=== PATIENT | female | born 1985 | race Hispanic/Latino ===

== ENCOUNTER 2021-06-12 23:04 | Emergency (ER) | payer BC ==
[~2021-06-12] VITALS: Ht 162.6 cm; Wt 92.1 kg
[2021-06-13] MEDS ORDERED: CEFTRIAXONE 1G VIAL IVP ONE
[2021-06-13] MEDS ORDERED: CLINDAMYCIN IVPB 900MG/50ML 50 ML IV ONE
[2021-06-13] MEDS ORDERED: KETOROLAC 30MG VIAL (30MG/ML) IV ONE
[2021-06-13] MEDS ORDERED: 0.9%NACL 1000ML 1,000 ML IV ONE
[2021-06-13 00:11] LABS: BASOPHILS % (AUTO) 1.1 % (0.0-5.0); EOSINOPHILS % (AUTO) 0.8 % (0.0-8.0); HEMATOCRIT 40.1 % (36-48); LYMPHOCYTES % (AUTO) 28.7 % (21.0-51.0); MEAN CORPUSCULAR HGB CONC 33.2 g/dL (32.0-36.0); MEAN CORPUSCULAR VOLUME 84.4 fL (79-99); MONOCYTES % (AUTO) 7.7 % (3.0-13.0); NEUTROPHILS % (AUTO) 61.4 % (40.0-77.0); PLATELET COUNT (AUTO) 360 K/uL (130-400); RED BLOOD CELL COUNT(AUTO) 4.75 MIL/uL (4.00-5.50); RED CELL DISTRIBUTION WIDTH 12.1 % (11.0-15.5); WHITE BLOOD COUNT (AUTO) 7.4 K/uL (4.8-10.8)
[2021-06-13 00:25] LABS: CREATININE 0.6 mg/dL (0.5-1.5); POTASSIUM 3.5 mmol/L (3.5-5.1)
[2021-06-13 00:29] LABS: ALBUMIN 3.7 g/dL (3.5-5.0); BILIRUBIN,TOTAL 0.5 mg/dL (0.2-1.0); TOTAL PROTEIN, SERUM 7.2 g/dL (6.0-8.3)
[2021-06-13 00:50] VITALS: BP 121/63
[2021-06-13 01:13] LABS: ERYTHROCYTE SEDIMENTATION RATE 6 MM/HR (0-20)
[2021-06-13] MEDS ORDERED: CEPH500B PO (02:08)
[2021-06-13] MEDS ORDERED: MELO7.5T12 PO (02:08)
[2021-06-13] MEDS ORDERED: MUPI22O TP (02:09)
[2021-06-13] MEDS ORDERED: ACET-2247 PO (13:53)
== END 2021-06-13 02:17 | disposition home or self-care (01) ==
LOC: EDH 23:04
DX: S80.12XA Contusion of left lower leg, initial encounter (principal); L03.116 Cellulitis of left lower limb; E78.00 Pure hypercholesterolemia, unspecified; F90.9 Attention-deficit hyperactivity disorder, unspecified type; Z79.899 Other long term (current) drug therapy; W20.8XXA Other cause of strike by thrown, projected or falling object, initial encounter; Y93.89 Activity, other specified; Y92.89 Other specified places as the place of occurrence of the external cause; Y99.8 Other external cause status
CPT/HCPCS: 36415; 73700; 80053; 82550; 83605; 84703; 85025; 85651; 86140; 96365; 96375; J0696; J1885; J3490; J7030

== ENCOUNTER 2021-06-13 12:27 | Emergency (ER) | payer BC ==
[~2021-06-13] VITALS: Ht 160 cm; Wt 92.1 kg
[~2021-06-13 12:27] MED LIST: CEPH500B PO; MELO7.5T12 PO; MUPI22O TP
[2021-06-13] MEDS ORDERED: CLINDAMYCIN 150 MG CAP PO ONE (13:00)
[2021-06-13] MEDS ORDERED: ACETAMINOPHEN WITH CODEINE 1 TAB TAB PO ONE (13:00)
[2021-06-13 13:18] LABS: BASOPHILS % (AUTO) 1.1 % (0.0-5.0); EOSINOPHILS % (AUTO) 0.5 % (0.0-8.0); HEMATOCRIT 41.3 % (36-48); MEAN CORPUSCULAR HEMOGLOBIN 27.9 pg (27.0-33.0); MEAN CORPUSCULAR HGB CONC 32.9 g/dL (32.0-36.0); MEAN CORPUSCULAR VOLUME 84.6 fL (79-99); MONOCYTES % (AUTO) 6.6 % (3.0-13.0); NEUTROPHILS % (AUTO) 72.5 % (40.0-77.0); PLATELET COUNT (AUTO) 363 K/uL (130-400); RED BLOOD CELL COUNT(AUTO) 4.88 MIL/uL (4.00-5.50); RED CELL DISTRIBUTION WIDTH 12.1 % (11.0-15.5); WHITE BLOOD COUNT (AUTO) 7.4 K/uL (4.8-10.8)
[2021-06-13 13:32] LABS: CREATININE 0.7 mg/dL (0.5-1.5); POTASSIUM 3.9 mmol/L (3.5-5.1)
[2021-06-13 13:37] LABS: ALBUMIN 3.8 g/dL (3.5-5.0); BILIRUBIN,TOTAL 0.5 mg/dL (0.2-1.0); TOTAL PROTEIN, SERUM 7.6 g/dL (6.0-8.3)
[2021-06-13] MEDS ORDERED: ACET-2247 PO (13:53)
[2021-06-13 13:56] VITALS: BP 128/74
== END 2021-06-13 14:12 | disposition home or self-care (01) ==
LOC: EDH 12:27
DX: S80.812A Abrasion, left lower leg, initial encounter (principal); L03.116 Cellulitis of left lower limb; E78.00 Pure hypercholesterolemia, unspecified; W19.XXXA Unspecified fall, initial encounter; Y93.89 Activity, other specified; Y92.89 Other specified places as the place of occurrence of the external cause; Y99.8 Other external cause status
CPT/HCPCS: 36415; 80053; 83605; 85025

== ENCOUNTER 2021-08-02 02:11 | Emergency (ER) | payer BC, OTHER ==
[~2021-08-02] VITALS: Ht 162.6 cm; Wt 93.9 kg
[~2021-08-02 02:11] MED LIST changes: +ACET-2247 PO
[2021-08-02 02:28] VITALS: BP 128/78
[2021-08-02] MEDS ORDERED: NEOMY SULF/BACITRA/POLYMYXIN B 1 EACH PACKET TP ONE (02:41)
[2021-08-02] MEDS ORDERED: MUPI22O TP (02:47)
[2021-08-02] MEDS ORDERED: DOXY-336 PO (02:47)
== END 2021-08-02 02:59 | disposition home or self-care (01) ==
LOC: EDH 02:11
DX: S81.802A Unspecified open wound, left lower leg, initial encounter (principal); E78.00 Pure hypercholesterolemia, unspecified; Z79.1 Long term (current) use of non-steroidal anti-inflammatories (NSAID); E66.9 Obesity, unspecified; Z68.35 Body mass index [BMI] 35.0-35.9, adult; X58.XXXA Exposure to other specified factors, initial encounter; Y93.89 Activity, other specified; Y92.89 Other specified places as the place of occurrence of the external cause; Y99.8 Other external cause status
CPT/HCPCS: 99282

== ENCOUNTER 2023-01-11 22:39 | Emergency (ER) | payer BC, OTHER ==
[~2023-01-11] VITALS: Ht 162.6 cm; Wt 89.8 kg
[~2023-01-11 22:39] MED LIST changes: +DOXY-469 PO
[2023-01-11 23:28] LABS: APPEARANCE,URINE CLOUDY (CLEAR); BILIRUBIN,URINE NEGATIVE (NEGATIVE); COLOR,URINE YELLOW (YELLOW); GLUCOSE, URINE (UA) NEGATIVE (NEGATIVE); KETONES,URINE NEGATIVE (NEGATIVE); LEUKOCYTE ESTERASE ,URINE 500 Leu/uL (NEGATIVE); NITRATE,URINE NEGATIVE (NEGATIVE); PH,URINE 5.5 (5.0-8.0); PROTEIN,URINE 30 mg/dL (NEGATIVE)
[2023-01-11] MEDS ORDERED: 0.9% NACL 500ML IV.SOLN 500 ML IV ONE (23:30)
[2023-01-11] MEDS ORDERED: PROMETHAZINE HCL 25 MG/ML 1ML AMPULE IM ONE (23:30)
[2023-01-11 23:44] LABS: BASOPHILS % (AUTO) 0.9 % (0.0-5.0); EOSINOPHILS % (AUTO) 0.9 % (0.0-8.0); HEMATOCRIT 42.1 % (36-48); IMMATURE GRANULOCYTE ABSOLUTE 0.02 K/uL (0-1); LYMPHOCYTES # (AUTO) 3.7 K/uL (1.0-4.8); LYMPHOCYTES % (AUTO) 34.2 % (21.0-51.0); MEAN CORPUSCULAR HEMOGLOBIN 29.3 pg (27.0-33.0); MEAN CORPUSCULAR HGB CONC 35.2 g/dL (32.0-36.0); MEAN CORPUSCULAR VOLUME 83.4 fL (79-99); MONOCYTES % (AUTO) 9.1 % (3.0-13.0); NEUTROPHILS # (AUTO) 5.9 K/uL (1.8-7.7); NEUTROPHILS % (AUTO) 54.7 % (40.0-77.0); PLATELET COUNT (AUTO) 395 K/uL (130-400); RED BLOOD CELL COUNT(AUTO) 5.05 MIL/uL (4.00-5.50); WHITE BLOOD COUNT (AUTO) 10.8 K/uL (4.8-10.8)
[2023-01-11 23:45] LABS: ADD UA MICROSCOPIC YES; HCG,QUALITATIVE URINE NEGATIVE (NEGATIVE)
[2023-01-11 23:48] LABS: BACTERIA,URINE MANY /HPF (None Seen); MUCUS,URINE RARE LPF (None Seen); SQUAMOUS EPITHELIAL CELL,UR MOD /HPF (0-2); WBC,URINE 26-50 /HPF (0-1)
[2023-01-11 23:56] LABS: BILIRUBIN,TOTAL 0.8 mg/dL (0.2-1.0); TOTAL PROTEIN, SERUM 7.6 g/dL (6.0-8.3)
[2023-01-11 23:59] LABS: POTASSIUM 2.7 mmol/L (3.5-5.1)
[2023-01-12] MEDS ORDERED: CEFTRIAXONE 1G VIAL IVPB ONE (00:30)
[2023-01-12] MEDS ORDERED: POTASSIUM BICARB/CIT AC 25 MEQ TABLET.EFF PO ONE (00:30)
[2023-01-12 02:02] LABS: APPEARANCE,URINE CLEAR (CLEAR); BILIRUBIN,URINE NEGATIVE (NEGATIVE); COLOR,URINE COLORLESS (YELLOW); GLUCOSE, URINE (UA) NEGATIVE (NEGATIVE); KETONES,URINE NEGATIVE (NEGATIVE); LEUKOCYTE ESTERASE ,URINE NEGATIVE Leu/uL (NEGATIVE); NITRATE,URINE NEGATIVE (NEGATIVE); OCCULT BLOOD,URINE NEGATIVE (NEGATIVE); PH,URINE 6.5 (5.0-8.0); PROTEIN,URINE NEGATIVE (NEGATIVE); UROBILINOGEN,URINE 0.2 mg/dL (0.2-1.0)
[2023-01-12 02:03] LABS: RBC,URINE 0-1 /HPF (0-1); WBC,URINE 0-1 /HPF (0-1)
[2023-01-12] MEDS ORDERED: OMEP40CA21 PO (02:40)
[2023-01-12] MEDS ORDERED: ONDA-104 PO (02:40)
[2023-01-12 02:56] VITALS: BP 142/80; PULSE 78; RESP 16; O2SAT 98
== END 2023-01-12 02:57 | disposition home or self-care (01) ==
LOC: EDH 22:39
DX: K31.84 Gastroparesis (principal); E78.00 Pure hypercholesterolemia, unspecified; K21.9 Gastro-esophageal reflux disease without esophagitis; Z79.899 Other long term (current) drug therapy
CPT/HCPCS: 99284; 74178; 71045; 80053; 83690; 85025; 87088; 81001 ×2; 81025; 36415; 96365; 96366; J7040; J0696

== ENCOUNTER 2024-10-14 03:07 | Emergency (ER) | payer BC, OTHER ==
[~2024-10-14] VITALS: Ht 162.6 cm; Wt 94.8 kg
[~2024-10-14 03:07] MED LIST changes: +DOXY-466 PO; -DOXY-469 PO; +OMEP40CA21 PO; +ONDA-104 PO
--- NOTE | 2024-10-14 03:39 | ERN ---
General Chief Complaint: Animal Bite Stated Complaint: C/O DOG BITE TO RIGHT THUMB Time Seen by MD: 03:11 Source: patient History of Present Illness Initial Comments Healthy 39-year-old female who received very very small dog bite to her distal thumb pad yesterday. The wound bled for a very short time and then has since sealed. She went to an urgent care and received a prescription for antibiotics. She comes here for a rabies shut. She is asymptomatic and the pinprick dog bite has already sealed. Timing/Duration: 24 hours Allergies: Coded Allergies: No Known Allergies (Unverified Allergy, Unknown, 06/12/21) Home Meds Active Scripts Ondansetron HCl (Ondansetron HCl) 4 Mg Tablet, 4 MG PO TIDP PRN for VOMITING, #30 TAB Prov:AFIA LOZANO MD 01/12/23 Omeprazole (Omeprazole) 40 Mg Capsule.dr, 40 MG PO DAILY, #30 CAP Prov:AFIA LOZANO MD 01/12/23 Mupirocin (Bactroban 2% Oint) 1 Appl/Gm Oint, 1 APPL TP BID, #1 TUBE 1 Refill Prov:BRYAN BLACKBURN MD 08/02/21 Doxycycline Monohydrate (Doxycycline Monohydrate) 100 Mg Capsule, 1 CAP PO BID for 10 Days, #20 CAP 0 Refills Prov:BRYAN BLACKBURN MD 08/02/21 Acetaminophen (Tylenol) 325 Mg Tablet, 650 MG PO Q4HPRN, #50 TAB Prov:QUANG MARI 06/13/21 Mupirocin (Bactroban 2% Oint) 1 Appl/Gm Oint, 1 APPL TP TID, #60 APPL 0 Refills Prov:MARCUS SANCHEZ MD 06/13/21 Cephalexin Monohydrate (Keflex) 500 Mg Cap, 500 MG PO TID for 10 Days, #30 CAP 0 Refills Prov:MARCUS SANCHEZ MD 06/13/21 Meloxicam (Mobic) 7.5 Mg Tablet, 7.5 MG PO DAILY, #10 TAB 0 Refills Prov:MARCUS SANCHEZ MD 06/13/21 Past Medical History Past Medical History: Other Medical History Other: SCIATICA, obesity, IBS, HEMORRHOIDS,GASTRITS, ADHD Past Surgical History: None Family History Family History: Negative Social History Social History: Negative, Lives with family, Other ROS Dictation Review of systems is negative Physical Exam Extremities Comment Patient's right thumb has two pinpricks that are scabbing over already. There was no swelling there was no erythema there was no discharge. MDM We do not have the immunoglobulin for rabies in our pharmacy. I explained this to the patient and told her that she does need to get an immunoglobulin rabies shot. She should contact her primary care physician or another urgent care facility for this inoculation. I did have give the patient any antibiotics as she has already been prescribed some. She can get her tetanus shot when she gets her rabies immunoglobulin. ED Course Vital Signs Date Time Temp Pulse Resp B/P (MAP) Pulse Ox O2 Delivery O2 Flow Rate FiO2 10/14/24 03:08 98.2 84 20 134/82 97 Room Air DX & DISP Disposition: Discharge Departure Impression: Primary Impression: Dog bite of right thumb Condition: Stable Additional Instructions: Even though you have a tiny pinprick of a dog bite you do need to get the rabies immunoglobulin shots. Unfortunately we do not have them at this hospital. You need to go to an urgent care facility or your primary care doctor to receive the immunoglobulin shots. You should get one on days 05/21/2013 and 28. In addition you should get a tetanus shot. Please take the antibiotic already prescribed for you. Please return if you start to have symptoms of a rabies infection such as flu- like symptoms that then progressed to more neurological symptoms such as headaches weakness pain tingling confusion agitation fear of water because of difficulty swallowing. Referrals: FANNIE PORTILLO (PCP) CRHIS CALL MD Oct 14, 2024 03:39
[2024-10-14 03:56] VITALS: BP 128/78; PULSE 82; RESP 16; TEMP 98.1; O2SAT 99
== END 2024-10-14 03:57 | disposition home or self-care (01) ==
LOC: EDH 03:07
DX: S61.051A Open bite of right thumb without damage to nail, initial encounter (principal); E66.9 Obesity, unspecified; Z79.1 Long term (current) use of non-steroidal anti-inflammatories (NSAID); Z79.899 Other long term (current) drug therapy; W54.0XXA Bitten by dog, initial encounter; Y93.89 Activity, other specified; Y92.89 Other specified places as the place of occurrence of the external cause; Y99.8 Other external cause status
CPT/HCPCS: 99282